=== PATIENT | female | born 1965 | race Caucasian/White ===

== ENCOUNTER 2017-08-18 19:37 | Emergency (ER) | payer BC ==
--- NOTE | 2017-08-18 21:12 | EDM.PDOC ---
ED HPI GENERAL MEDICAL PROBLEM - General Chief Complaint: Skin Complaint Stated Complaint: BLOOD COT IN RIGHT ARM Time Seen by Provider: 08/18/17 19:51 Source of Information: Reports: Patient History Limitations: Reports: No Limitations - History of Present Illness INITIAL COMMENTS - FREE TEXT/NARRATIVE: The patient presents with redness and edema to her right thumb, wrist and forearm. She noticed it today. She is concerned this could be a DVT. She had breast cancer and she developed a DVT at the site of her port and into her neck. She has the lymph nodes removed from the right arm. She has no fever, chills, cough, chest pain or shortness of breath. There was a cut to her right thumb cuticle area. Onset: Gradual Duration: Day(s): Location: Reports: Upper Extremity, Right (Forearm) Quality: Reports: Sharp Severity: Mild Improves with: Reports: None Worsens with: Reports: None Associated Symptoms: Reports: No Other Symptoms Right Arm Pain Score (Numeric/FACES): 4 - Related Data Allergies Allergy/AdvReac Type Severity Reaction Status Date / Time adhesive Allergy Rash Verified 08/18/17 19:48 cimetidine [From Tagamet] Allergy Rash Verified 08/18/17 19:47 latex Allergy Rash Verified 08/18/17 19:48 Penicillins Allergy Airway Verified 08/18/17 19:47 Tightness Sulfa (Sulfonamide Allergy Rash Verified 08/18/17 19:47 Antibiotics) tioconazole Allergy Swelling Verified 08/18/17 19:47 [From Monistat 1 (tioconazole)] Home Meds: Home Meds Doxycycline [Vibramycin] 100 mg PO BID #20 cap 08/18/17 [Rx] Past Medical History Respiratory History: Reports: Asthma Psychiatric History: Reports: Anxiety Oncologic (Cancer) History: Reports: Breast Dermatologic History: Reports: Eczema - Past Surgical History GI Surgical History: Reports: Cholecystectomy Female Surgical History: Reports: Hysterectomy, Mastectomy Other Female Surgeries/Procedures: double mastectomy. lymph node removal-22 out of right Musculoskeletal Surgical History: Reports: Arthroscopic Procedure, Shoulder Surgery Social & Family History - Family History Family Medical History: Noncontributory - Tobacco Use Smoking Status *Q: Never Smoker - Caffeine Use Caffeine Use: Reports: Coffee - Recreational Drug Use Recreational Drug Use: No ED ROS GENERAL - Review of Systems Review Of Systems: See Below Constitutional: Reports: No Symptoms HEENT: Reports: No Symptoms Respiratory: Reports: No Symptoms Cardiovascular: Reports: No Symptoms Endocrine: Reports: No Symptoms GI/Abdominal: Reports: No Symptoms : Reports: No Symptoms Musculoskeletal: Reports: Other (Left forearm erythema and edema) Neurological: Reports: No Symptoms ED EXAM, SKIN/RASH Exam: See Below Exam Limited By: No Limitations General Appearance: Alert, No Apparent Distress Ears: Normal External Exam Nose: Normal Inspection Head: Atraumatic, Normocephalic Neck: Normal Inspection Respiratory/Chest: No Respiratory Distress, Lungs Clear, Normal Breath Sounds Cardiovascular: Regular Rate, Rhythm, No Edema, No Murmur GI/Abdominal: Soft, Non-Tender, No Organomegaly, No Mass Back Exam: Normal Inspection Extremities: Other (Erythema and edema to the distal forearm and wrist of the right arm. There is some erythema to the cuticle are of the right thumb.) Course - Vital Signs Last Recorded V/S: Last Vital Signs Temp 98.2 F 08/18/17 19:43 Pulse 58 L 08/18/17 19:43 Resp 20 08/18/17 19:43 BP 150/88 H 08/18/17 19:43 Pulse Ox 99 08/18/17 19:43 - Orders/Labs/Meds Orders: Active Orders 24 hr Category Date Time Status VL Duplex Upr Ext Veins Ltd Rt [US] Stat Exams 08/18/17 19:56 Taken - Re-Assessments/Exams Free Text/Narrative Re-Assessment/Exam: 08/18/17 21:22 I did an US and it was negative for DVT. She has cellulitis. I will get her on some dosycycline 100mg 2 times per day. Departure - Departure Time of Disposition: 21:25 Disposition: Home, Self-Care 01 Condition: Good Clinical Impression: Cellulitis Qualifiers: Site of cellulitis: extremity Site of cellulitis of extremity: upper extremity Laterality: right Qualified Code(s): L03.113 - Cellulitis of right upper limb - Discharge Information Prescriptions: Doxycycline [Vibramycin] 100 mg PO BID #20 cap Referrals: Tung Mtz MD [Primary Care Provider] - 1 Week Forms: ED Department Discharge Additional Instructions: Take the doxycycline 2 times per day for 10 days. Put warm compresses on the affected area 2 times per day or 5 days. Please return if you are worse. - My Orders Last 24 Hours: My Active Orders 08/18/17 19:56 VL Duplex Upr Ext Veins Ltd Rt [US] Stat - Assessment/Plan Last 24 Hours: My Active Orders 08/18/17 19:56 VL Duplex Upr Ext Veins Ltd Rt [US] Stat
--- NOTE | 2017-08-19 08:33 | US ---
Right upper extremity venous ultrasound: Multiple real-time images were obtained of the right internal jugular, subclavian, axillary, basilic, brachial, cephalic, radial and ulnar veins. Left subclavian vein is also evaluated. Normal compression, phasic flow and augmentation is seen. Impression: 1. No evidence of venous thrombosis within the right upper extremity or within the left subclavian vein. Diagnostic code #1 Agree with preliminary report issued by [facility] ([facility] preliminary report dictated on 08/10/17, 10:04 PM Central Time)
== END 2017-08-18 21:30 | disposition home or self-care (01) ==
LOC: JD.ED 19:37
DX: L03.113 Cellulitis of right upper limb (principal); Z88.0 Allergy status to penicillin; Z91.040 Latex allergy status; Z91.048 Other nonmedicinal substance allergy status; Z88.2 Allergy status to sulfonamides; Z88.8 Allergy status to other drugs, medicaments and biological substances
CPT/HCPCS: 93971-26-RT; 93971-RT; 99284; 99284-25